=== PATIENT | female | born 1990 | race African-American/Black ===

== ENCOUNTER 2017-09-30 23:34 | Emergency (ER) | payer SELFPAY ==
[~2017-09-30] VITALS: Ht 167.6 cm; Wt 78.0 kg
[2017-09-30 23:36] VITALS: BP 146/71; PULSE 100; RESP 16; TEMP 99.2; O2SAT 99
[2017-09-30] MEDS ORDERED: PREN29TA PO (23:58)
--- NOTE | 2017-10-01 00:11 | PD ---
HPI Chief Complaint: Exposure to Blood/Body Fluids Time Seen by Provider: 23:50 Travel History International Travel<30 days: No Contact w/Intl Traveler<30days: No Traveled to known affect area: No History of Present Illness HPI Patient is a 27 year female presented to the emergency department for evaluation after being exposed to blood. Patient was in her father's emergency department room while he was getting an IV started when she alleges the nurse took off his gloves (which per her report had visible blood on them) after wiping up blood on the floor with an antimicrobial wipe. She states that whatever was on the glove splashed her in the eye and she had a speck of blood on her forehead. She states that it burned her eye when it splashed. She reports that her family member is HIV positive. Patient has no other complaints at this time. [facility]LY [facility] Past Medical History Medical History: Denies Significant Hx Tetanus Vaccination: < 5 Years Influenza Vaccination: No ?: Past Surgical History Surgical History: No Previous Surgery Social History Alcohol Use: No Tobacco Use: No Substance Use: No Allergies-Medications (Allergen,Severity, Reaction): Coded Allergies: No Known Drug Allergies (Verified Allergy, Unknown, 09/30/17) Reported Meds & Prescriptions Reported Meds & Active Scripts Active Reported Plus Iron 29-1 mg ( Vit-Iron Carbonyl) 29 Mg Iron-1 Mg Tab 1 Tab PO DAILY Review of Systems Except as stated in HPI: all other systems reviewed are Neg Physical Exam Narrative GENERAL: Well-developed, well-nourished, alert -[place] female. Presenting in no acute distress. SKIN: Warm and dry. HEAD: Normocephalic. EYES: No scleral icterus. No injection or drainage. NECK: Supple, trachea midline. No JVD or lymphadenopathy. CARDIOVASCULAR: Regular rate and rhythm without murmurs, gallops, or rubs. RESPIRATORY: Breath sounds equal bilaterally. No accessory muscle use. GASTROINTESTINAL: Abdomen soft, non-tender, nondistended. MUSCULOSKELETAL: No cyanosis, or edema. BACK: Nontender without obvious deformity. No CVA tenderness. Data Data Last Documented VS Vital Signs Date Time Temp Pulse Resp B/P (MAP) Pulse Ox O2 Delivery O2 Flow Rate FiO2 09/30/17 23:36 99.2 100 16 146/71 (96) 99 Room Air MDM Medical Decision Making Medical Screen Exam Complete: Yes Emergency Medical Condition: Yes Interpretation(s) Vital Signs Date Time Temp Pulse Resp B/P (MAP) Pulse Ox O2 Delivery O2 Flow Rate FiO2 09/30/17 23:36 99.2 100 16 146/71 (96) 99 Room Air Differential Diagnosis Exposure versus transmission versus other Narrative Course Patient is a 27-year-old female presenting for evaluation after being exposed to blood from an HIV infected family member. Patient was nervous, she is currently 24 weeks . Her vital signs are stable, postexposure packet will be initiated. Risk of exposure is low, patient is wearing glasses. RN was using antimicrobial wipe to clean the floor which no further within theoretically the viral load on his gloves if there was any blood. Additionally patient stated that it burned when he got into her eye which would make it more consistent with a chemical rather than blood. Patient is encouraged to follow-up with her primary doctor. She can return to emergency department any worsening symptoms. Patient is medically cleared. Diagnosis Primary Impression: HIV exposure from body fluids Referrals: Primary Care Physician Patient Instructions: Postexposure Prophylaxis (ED) Additional Instructions: Follow-up with your primary doctor Return to emergency department for any new worsening symptoms Med/Other Pt SpecificInfo: No Change to Meds Disposition: 01 DISCHARGE HOME Condition: Stable Anne Daniel Oct 01, 2017 00:11
[2017-10-07 15:49] LABS: HEPATITIS B SURFACE ANTIGEN NEGATIVE (NEGATIVE); HEPATITIS C AB IgG NEGATIVE (NEGATIVE)
== END 2017-10-01 01:50 | disposition home or self-care (01) ==
LOC: NEPD 23:34
DX: Z20.6 Contact with and (suspected) exposure to human immunodeficiency virus [HIV] (principal)
CPT/HCPCS: 86317; 86703; 86803; 87340; 99281